=== PATIENT | male | born 2000 | race Caucasian/White ===

== ENCOUNTER 2020-08-28 13:26 | Emergency (ER) | payer BC ==
[~2020-08-28] VITALS: Ht 185.4 cm; Wt 72.7 kg
[2020-08-28 13:34] VITALS: TEMP 98
[2020-08-28 14:19] LABS: BASO # 0.1 (0.0-0.2); BASO % 0.6 % (0.0-2.0); GRAN # 15.3 (1.4-6.5); GRAN % 83.8 % (42.2-75.2); HEMATOCRIT 45.5 % (36.0-47.0); HEMOGLOBIN 16.4 g/dl (12.5-16.1); LYMPH # 2.1 (1.2-3.4); LYMPH % 11.2 % (20.0-51.0); MEAN CELL VOLUME 87 fl (80.0-95.0); MEAN CORPUSCULAR HEMOGLOBIN 31 pg (26.0-32.0); MEAN CORPUSCULAR HGB CONC 36 g/dl (33.0-37.0); MEAN PLATELET VOLUME 9.4 fl (7.4-10.4); MONO # 0.7 (0.1-0.6); MONO % 3.9 % (1.7-9.3); PLATELET COUNT 456 K/mm3 (130-400); RED BLOOD COUNT 5.26 M/mm3 (4.20-5.60); REDCELL DISTRIBUTION WIDTH-CV 12.8 % (11.5-14.5)
[2020-08-28 14:50] LABS: ALBUMIN 5.3 gm/dL (3.5-5.0); ALKALINE PHOSPHATASE 58 U/L (50-136); ANION GAP 19 mmol/L (7-16); AST,SGOT 28 U/L (15-37); BILIRUBIN,TOTAL 0.8 mg/dL (0.0-1.0); BLOOD UREA NITROGEN 10 mg/dL (9-20); CALCIUM 10.3 mg/dL (8.4-10.2); CARBON DIOXIDE 15 mmol/L (22-30); CHLORIDE 105 mmol/L (98-107); CREATININE, serum 0.93 (0.66-1.25); GLUCOSE 148 mg/dL (74-106); LIPASE 47 U/L (23-300); POTASSIUM 3.6 mmol/L (3.4-5.0); SODIUM 139 mmol/L (137-145); TOTAL PROTEIN 8.2 gm/dL (6.4-8.2)
[2020-08-28 14:54] LABS: ALANINE AMINOTRANSFERASE 22 U/L (4-49)
[2020-08-28 14:59] LABS: C-REACTIVE PROTEIN < 0.5 mg/dL (0.0-0.9)
[2020-08-28 16:21] LABS: COLLECTION METHOD CLEAN CATCH
[2020-08-28 16:33] LABS: MUCOUS Present /lpf; PH 9 (5-8); SQUAMOUS EPITHELIAL 0-2 /hpf; URINE APPEARANCE Clear; URINE BACTERIA None Seen /hpf; URINE BILIRUBIN Negative (NEGATIVE); URINE BLOOD Negative (NEGATIVE); URINE COLOR Yellow; URINE GLUCOSE Negative (NEGATIVE); URINE KETONE 1+ (NEGATIVE); URINE LEUKOCYTE ESTERASE Negative (NEGATIVE); URINE NITRATE Negative (NEGATIVE); URINE PROTEIN(semi-quant) 2+ (NEGATIVE); URINE RBC 0-2 /hpf; URINE UROBILINOGEN Negative (NEGATIVE)
[2020-08-28 17:11] VITALS: BP 131/66; PULSE 102
[2020-08-28] MEDS ORDERED: PHENERGAN 25 TA25 MG PO (17:12)
[2020-08-28] MEDS ORDERED: ZOFRAN ODT4 MG PO (17:12)
== END 2020-08-28 17:24 | disposition home or self-care (01) ==
LOC: COL.ER 13:26
PROVIDERS: Family Medicine
DX: R11.15 Cyclical vomiting syndrome unrelated to migraine (principal)
CPT/HCPCS: J1200; J1630; J2060; J2405; J2550; J7030; J7120

== ENCOUNTER 2020-09-12 21:24 | Emergency (ER) | payer BC ==
[~2020-09-12] VITALS: Ht 185.4 cm; Wt 72.7 kg
[~2020-09-12 21:24] MED LIST: PHENERGAN 25 TA25 MG PO; ZOFRAN ODT4 MG PO
[2020-09-12 22:15] VITALS: BP 124/71; PULSE 76; TEMP 97.4
== END 2020-09-12 22:16 | disposition home or self-care (01) ==
LOC: COL.ER 21:24
DX: T23.042A Burn of unspecified degree of multiple left fingers (nail), including thumb, initial encounter (principal); T31.0 Burns involving less than 10% of body surface; F17.290 Nicotine dependence, other tobacco product, uncomplicated; X10.2XXA Contact with fats and cooking oils, initial encounter

== ENCOUNTER 2024-07-23 11:22 | Day surgery (SDC) | payer OTHER ==
[~2024-07-23] VITALS: Ht 182.9 cm; Wt 79.2 kg
[~2024-07-23 11:22] MED LIST changes: +AMOXICILLIN 8751 TAB PO; +LR 1,000 ML IV SCH; +Ondansetron 4 MG/2 ML VIAL IV PRN
[2024-07-23 12:22] VITALS: BP 129/74; PULSE 12; TEMP 97.9
[2024-07-23] MEDS ORDERED: Lidocaine PF 2% (20 MG/ML) 5 ML VIAL ONE (12:36)
[2024-07-23 13:20] VITALS: BP 113/53; PULSE 55; TEMP 97
--- NOTE | 2024-07-23 13:20 | NUR ---
PATIENT AMBULATED TO CHAIR WITH STEADY GAIT, ASSIST OF 2. ALERT AND AWAKE. DENIES PAIN, NAUSEA AND SHORTNESS OF BREATH. BREATHING REGULAR AND UNLABORED ON ROOM AIR. SKIN WARM AND DRY. IV IN PLACE. NURSE HANDOFF COMPLETED IN ROOM. SEE CHART FOR VITAL SIGNS. PATIENT HAD WATER AND A MUFFIN, BOTH TOLERATED WELL. NO DYSPHAGIA. CALL LIGHT IN REACH. CAIT LEROY, PRESENT IN ROOM.
[2024-07-23 13:30] VITALS: BP 100/89; PULSE 65
[2024-07-23 13:45] VITALS: BP 116/65; PULSE 55
[2024-07-23 14:00] VITALS: BP 118/61; PULSE 53
[2024-07-23 14:09] VITALS: BP 122/65; PULSE 60
--- NOTE | 2024-07-23 14:12 | NUR ---
1343: MET WITH PATIENT AND CAIT IN ROOM TO DISCUSS PROCEDURE. 1407: DISCHARGE TEACHING COMPLETED WITH PRINTED EDUCATION AND INSTRUCTIONS SENT HOME WITH PATIENT. PATIENT VERBALIZED UNDERSTANDING OF TEACHING. 1410: IV REMOVED. GAUZE AND COBAN PLACED OVER SITE. 1412: PATIENT DISCHARGED HOME WITH CAIT TRANSPORT.
== END 2024-07-23 14:12 | disposition home or self-care (01) ==
LOC: SDCO 11:22
DX: K62.1 Rectal polyp (principal); K29.80 Duodenitis without bleeding; K92.1 Melena; K64.0 First degree hemorrhoids; F17.290 Nicotine dependence, other tobacco product, uncomplicated
CPT/HCPCS: J2704; J7120